=== PATIENT | male | born 1985 | race Caucasian/White ===

== ENCOUNTER 2018-02-10 21:54 | Emergency (ER) | payer BC ==
--- NOTE | 2018-02-10 23:11 | ER ---
Nurse's Notes [facility] Name: Luis Vance Age: 32 yrs Sex: Male : 1985 Arrival Date: 02/10/2018 Time: 21:58 Bed 28 Private MD: Diagnosis: Anxiety disorder, unspecified Presentation: 02/10 21:58 Presenting complaint: Patient states: Increased anxiety for 3 days with decreased aj sleeping and fear of dying. Transition of care: patient was not received from another setting of care. Onset of symptoms was February 07, 2018. Risk Assessment: Do you want to hurt yourself or someone else? Patient reports no desire to harm self or others. Initial Sepsis Screen: Does the patient meet any 2 criteria? No. Patient's initial sepsis screen is negative. Does the patient have a suspected source of infection? No. Patient's initial sepsis screen is negative. Care prior to arrival: None. 21:58 Method Of Arrival: Ambulatory aj 21:58 Acuity: ELVA 4 aj Triage Assessment: 22:00 General: Appears in no apparent distress. comfortable, Behavior is calm, cooperative, aj appropriate for age. Pain: Denies pain. Neuro: Level of Consciousness is awake, alert, obeys commands, Oriented to person, place, time, situation, Appropriate for age. Respiratory: Airway is patent Respiratory effort is even, unlabored, Respiratory pattern is regular, symmetrical. Derm: Skin is intact, is healthy with good turgor, Skin is pink, warm \T\ dry. normal. Historical: - Allergies: 22:00 NKDA; aj - Home Meds: 22:00 Omeprazole Oral [Active]; aj - PMHx: 22:00 chronic neck pain; Anxiety; aj - PSHx: 22:00 None; aj - Immunization history:: Adult Immunizations up to date. - Social history:: Smoking status: Patient/guardian denies using tobacco. - Ebola Screening: : Patient negative for fever greater than or equal to 101.5 degrees Fahrenheit, and additional compatible Ebola Virus Disease symptoms Patient denies exposure to infectious person Patient denies travel to an Ebola-affected area in the 21 days before illness onset No symptoms or risks identified at this time. Screenin:47 Abuse screen: Denies threats or abuse. Nutritional screening: No deficits noted. tl3 Tuberculosis screening: No symptoms or risk factors identified. Fall Risk None identified. Assessment: 22:47 General: Appears well groomed, well developed, well nourished, Behavior is calm, tl3 cooperative. General: Behavior is anxious. Neuro: Level of Consciousness is awake, alert, obeys commands. Cardiovascular: Patient's skin is warm and dry. Respiratory: Airway is patent Respiratory effort is even, unlabored. GI: No signs and/or symptoms were reported involving the gastrointestinal system. : No signs and/or symptoms were reported regarding the genitourinary system. EENT: No signs and/or symptoms were reported regarding the EENT system. Derm: No signs and/or symptoms reported regarding the dermatologic system. Musculoskeletal: No signs and/or symptoms reported regarding the musculoskeletal system. 23:43 Reassessment: ice applied to injection site for comfort. tl3 23:54 Reassessment: No changes from previously documented assessment. Patient and/or family tl3 updated on plan of care and expected duration. Pain level reassessed. Patient is alert, oriented x 3, equal unlabored respirations, skin warm/dry/pink. Vital Signs: 22:00 BP 139 / 86; Pulse 86; Resp 18; Temp 97.4; Pulse Ox 98% on R/A; Weight 94.35 kg; Height aj 5 ft. 11 in. (180.34 cm); 22:47 BP 123 / 74; Pulse 84; Resp 18; Pulse Ox 98% on R/A; tl3 23:54 BP 123 / 99; Pulse 75; Resp 18; Pulse Ox 96% on R/A; tl3 22:00 Body Mass Index 29.01 (94.35 kg, 180.34 cm) ED Course: 21:58 Patient arrived in ED. aj 21:59 Triage completed. aj 22:00 Arm band placed on left wrist. Patient placed in an exam room. aj 22:12 Hayley Huggins, RN is Primary Nurse. tl3 22:13 Bharat Mehta MD is Attending Physician. kdr 22:47 ED physician to see patient. Dr Mehta at bedside for assessment. tl3 22:47 Patient has correct armband on for positive identification. Bed in low position. Pulse tl3 ox on. NIBP on. 22:47 No provider procedures requiring assistance completed. Patient did not have IV access tl3 during this emergency room visit. Administered Medications: 23:33 Drug: SOLU-Medrol 125 mg Route: IM; Site: left gluteus; tl3 23:55 Follow up: Response: Medication administered at discharge. tl3 23:34 CANCELLED (Duplicate Order): Ativan 2 mg PO once tl3 23:34 Drug: Ativan 2 mg Route: IM; Site: left gluteus; tl3 23:55 Follow up: Response: Medication administered at discharge. tl3 Outcome: 23:11 Discharge ordered by . kdr 23:54 Discharged to home ambulatory. tl3 23:54 Condition: good 23:54 Discharge instructions given to patient, family, Instructed on discharge instructions, follow up and referral plans. medication usage, Demonstrated understanding of instructions, follow-up care, medications, Prescriptions given X 2. 23:56 Patient left the ED. tl3 Signatures: Aleksandra Bar RN RN Bharat Garrett MD MD kdr Lowrey, Tammy, RN RN tl3 Corrections: (The following items were deleted from the chart) 23:33 23:33 Ativan 2 mg PO tl3 tl3
--- NOTE | 2018-02-10 23:11 | EDPHYS ---
Physician Documentation [facility] Name: Luis Vance Age: 32 yrs Sex: Male : 1985 Arrival Date: 02/10/2018 Time: 21:58 Bed 28 Private MD: ED Physician Bharat Mehta HPI: 02/11 00:34 This 32 yrs old Male presents to ER via Ambulatory with complaints of Anxiety.kdr 00:34 The patient presents to the emergency department with anxiety, Long standing. Onset: kdr The symptoms/episode began/occurred This is a long standing problem that has been worse in the last few days. He tried to get into a psych today but was not able to get an appointment until next Tuesday. Past psychiatric history: Prior diagnosis: no previous psychiatric diagnosis known, Psychiatric medications include: none, Primary psychiatric physician: the patient does not have a primary psychiatric physician, the patient has not had a prior suicide gesture, the patient does not have a previous inpatient psychiatric history, the patient's last psychiatric treatment was none. Associated signs and symptoms: The patient has no apparent associated signs or symptoms. Severity of symptoms: At their worst the symptoms were severe in the emergency department the symptoms have improved moderately. The patient has experienced similar episodes in the past, chronically, but today's symptoms are worse. The patient has not recently seen a physician. Historical: - Allergies: 02/10 22:00 NKDA; aj - Home Meds: 22:00 Omeprazole Oral [Active]; aj - PMHx: 22:00 chronic neck pain; Anxiety; aj - PSHx: 22:00 None; aj - Immunization history:: Adult Immunizations up to date. - Social history:: Smoking status: Patient/guardian denies using tobacco. - Ebola Screening: : Patient negative for fever greater than or equal to 101.5 degrees Fahrenheit, and additional compatible Ebola Virus Disease symptoms Patient denies exposure to infectious person Patient denies travel to an Ebola-affected area in the 21 days before illness onset No symptoms or risks identified at this time. ROS: 02/11 00:34 Constitutional: Negative for fever, chills, and weight loss, Eyes: Negative for injury, kdr pain, redness, and discharge, ENT: Negative for injury, pain, and discharge, Neck: Negative for injury, pain, and swelling, Cardiovascular: Negative for chest pain, palpitations, and edema, Respiratory: Negative for shortness of breath, cough, wheezing, and pleuritic chest pain, Abdomen/GI: Negative for abdominal pain, nausea, vomiting, diarrhea, and constipation, Back: Negative for injury and pain, : Negative for injury, bleeding, discharge, and swelling, MS/Extremity: Negative for injury and deformity, Skin: Negative for injury, rash, and discoloration, Neuro: Negative for headache, weakness, numbness, tingling, and seizure activity. Allergy/Immunology: Negative for hives, rash, and allergies, Endocrine: Negative for neck swelling, polydipsia, polyuria, polyphagia, and marked weight changes, Hematologic/Lymphatic: Negative for swollen nodes, abnormal bleeding, and unusual bruising. Psych: Positive for anxiety, Negative for depression, drug dependence, alcohol dependence, auditory hallucinations, visual hallucinations, homicidal ideation, insomnia, suicide gesture, suicidal ideation. Exam: 00:34 Constitutional: This is a well developed, well nourished patient who is awake, alert, kdr and in no acute distress. Head/Face: Normocephalic, atraumatic. Eyes: Pupils equal round and reactive to light, extra-ocular motions intact. Lids and lashes normal. Conjunctiva and sclera are non-icteric and not injected. Cornea within normal limits. Periorbital areas with no swelling, redness, or edema. Neck: Trachea midline, no thyromegaly or masses palpated, and no cervical lymphadenopathy. Supple, full range of motion without nuchal rigidity, or vertebral point tenderness. No Meningismus. Chest/axilla: Normal chest wall appearance and motion. Nontender with no deformity. No lesions are appreciated. Cardiovascular: Regular rate and rhythm with a normal S1 and S2. No gallops, murmurs, or rubs. Normal PMI, no JVD. No pulse deficits. Respiratory: Lungs have equal breath sounds bilaterally, clear to auscultation and percussion. No rales, rhonchi or wheezes noted. No increased work of breathing, no retractions or nasal flaring. Abdomen/GI: Soft, non-tender, with normal bowel sounds. No distension or tympany. No guarding or rebound. No evidence of tenderness throughout. Back: No spinal tenderness. No costovertebral tenderness. Full range of motion. Skin: Warm, dry with normal turgor. Normal color with no rashes, no lesions, and no evidence of cellulitis. MS/ Extremity: Pulses equal, no cyanosis. Neurovascular intact. Full, normal range of motion. Neuro: Awake and alert, GCS 15, oriented to person, place, time, and situation. Cranial nerves II-XII grossly intact. Motor strength 5/5 in all extremities. Sensory grossly intact. Cerebellar exam normal. Normal gait. 00:34 Psych: Behavior/mood is cooperative, anxious, Affect is calm, flat, Oriented to person, place, time, Patient has no thoughts/intents to harm self or others. Judgement / Insight is normal. Memory is normal. Delusions/hallucinations are not present. Vital Signs: 02/10 22:00 BP 139 / 86; Pulse 86; Resp 18; Temp 97.4; Pulse Ox 98% on R/A; Weight 94.35 kg; Height aj 5 ft. 11 in. (180.34 cm); 22:47 BP 123 / 74; Pulse 84; Resp 18; Pulse Ox 98% on R/A; tl3 23:54 BP 123 / 99; Pulse 75; Resp 18; Pulse Ox 96% on R/A; tl3 22:00 Body Mass Index 29.01 (94.35 kg, 180.34 cm) aj MDM: 23:11 Patient medically screened. kdr 02/11 00:34 Data reviewed: vital signs, nurses notes. Counseling: I had a detailed discussion with kdr the patient and/or guardian regarding: the historical points, exam findings, and any diagnostic results supporting the discharge/admit diagnosis, the need for outpatient follow up. Administered Medications: 02/10 23:33 Drug: SOLU-Medrol 125 mg Route: IM; Site: left gluteus; tl3 23:55 Follow up: Response: Medication administered at discharge. tl3 23:34 CANCELLED (Duplicate Order): Ativan 2 mg PO once tl3 23:34 Drug: Ativan 2 mg Route: IM; Site: left gluteus; tl3 23:55 Follow up: Response: Medication administered at discharge. tl3 Disposition: 02/10/18 23:11 Discharged to Home. Impression: Anxiety disorder, unspecified. - Condition is Stable. - Discharge Instructions: Panic Attacks, [id number]. - Prescriptions for Ativan 2 mg Oral Tablet - take 1 tablet by ORAL route every 8 hours As needed Take one tablet QHSas needed.; 10 tablet. Medrol (Tyler) 4 mg Oral Tablets, Dose Pack - take 1 tablet by ORAL route as directed - follow package instructions; 1 packet. - Medication Reconciliation Form, Thank You Letter form. - Follow up: Private Physician; When: 1 week; Reason: If symptoms return, Further diagnostic work-up, Recheck today's complaints, Continuance of care, Re-evaluation by your physician. - Problem is an acute exacerbation. - Symptoms have improved. Signatures: Aleksandra Bar RN RN aj Bharat Mehta MD MD kdr Hayley Huggins RN RN tl3 Corrections: (The following items were deleted from the chart) 23:34 23:09 Ativan 2 mg PO once ordered. kdr tl3 23:34 23:33 Ativan 2 mg PO once given. tl3 tl3 23:34 23:33 Ativan 2 mg PO once ordered. tl3 tl3 23:56 23:11 02/10/2018 23:11 Discharged to Home. Impression: Anxiety disorder, unspecified. tl3 Condition is Stable. Forms are Medication Reconciliation Form, Thank You Letter, Antibiotic Education, Prescription Opioid Use. Follow up: Private Physician; When: 1 week; Reason: If symptoms return, Further diagnostic work-up, Recheck today's complaints, Continuance of care, Re-evaluation by your physician. Problem is an acute exacerbation. Symptoms have improved. kdr
[2018-02-10] MEDS ORDERED: METHYLPREDNISOLONE 125 MG INJ ONE (23:28)
[2018-02-10] MEDS ORDERED: LORazepam 2 MG/ML VIAL ONE (23:29)
== END 2018-02-10 23:56 | disposition home or self-care (01) ==
LOC: ER 21:54
DX: F41.9 Anxiety disorder, unspecified (principal)
CPT/HCPCS: 96372; 99283; J2930

== ENCOUNTER 2018-08-31 11:36 | Emergency (ER) | payer BC ==
[2018-08-31] MEDS ORDERED: NA CHLORIDE 0.9% 1,000 ML ONE (13:19)
[2018-08-31] MEDS ORDERED: KETOROLAC 30 MG/ML INJ ONE (13:19)
[2018-08-31] MEDS ORDERED: METOCLOPRAMIDE 10 MG/2mL INJ ONE (13:19)
[2018-08-31] MEDS ORDERED: DIPHENHYDRAMINE 50 MG/ML VIAL ONE (13:19)
--- NOTE | 2018-08-31 13:24 | ER ---
Nurse's Notes [facility] Name: Luis Vance Age: 32 yrs Sex: Male : 1985 Arrival Date: 08/31/2018 Time: 11:39 Bed 15 Private MD: Diagnosis: Presentation: 08/31 12:01 Presenting complaint: Patient states: migraine X 2 days, body aches, fever, loss of iw appetite today. Transition of care: patient was not received from another setting of care. Onset of symptoms was August 29, 2018. Risk Assessment: Do you want to hurt yourself or someone else? Patient reports no desire to harm self or others. Initial Sepsis Screen: Does the patient meet any 2 criteria? No. Patient's initial sepsis screen is negative. Does the patient have a suspected source of infection? No. Patient's initial sepsis screen is negative. Care prior to arrival: None. 12:01 Method Of Arrival: Ambulatory iw 12:01 Acuity: ELVA 4 iw Historical: - Allergies: 12:02 NKDA; iw - PMHx: 12:02 Anxiety; chronic neck pain; iw - PSHx: 12:02 None; iw - Immunization history:: Adult Immunizations not up to date. - Social history:: Smoking status: Patient/guardian denies using tobacco. - Ebola Screening: : Patient negative for fever greater than or equal to 101.5 degrees Fahrenheit, and additional compatible Ebola Virus Disease symptoms Patient denies exposure to infectious person Patient denies travel to an Ebola-affected area in the 21 days before illness onset No symptoms or risks identified at this time. Assessment: 12:10 Reassessment: Patient is alert, oriented x 3, equal unlabored respirations, skin sg warm/dry/pink. at bedside evaluating pt at this time. 12:40 Reassessment: pt not observed to be in exam room at this time. sg Vital Signs: 12:02 BP 131 / 84; Pulse 100; Resp 16; Temp 99.5(O); Pulse Ox 100% ; Weight 95.25 kg; Height iw 5 ft. 11 in. (180.34 cm); Pain 9/10; 12:02 Body Mass Index 29.29 (95.25 kg, 180.34 cm) iw ED Course: 11:39 Patient arrived in ED. mr 12:00 Arun Souza MD is Attending Physician. gs 12:02 Triage completed. iw 12:02 Arm band placed on. iw 13:04 Luis Charles, RN is Primary Nurse. sg 13:12 not in exam room at this time. sg Administered Medications: No medications were administered Outcome: 13:22 Eloped from patient exam room, after seeing physician Time discovered patient gone: August at 13:20 13:22 unknown 13:23 Patient left the ED. sg Signatures: Luis Charles, GENEVIEVE VALLEJO Sulma Jaramillo Irene, RN RN Arun Souza MD MD
--- NOTE | 2018-08-31 13:24 | EDPHYS ---
Physician Documentation [facility] Name: Luis Vance Age: 32 yrs Sex: Male : 1985 Arrival Date: 08/31/2018 Time: 11:39 Bed 15 Private MD: ED Physician Arun Souza HPI: 08/31 13:17 This 32 yrs old Male presents to ER via Ambulatory with complaints of gs Headache. 13:17 The patient complains of pain to the left side of forehead. The patient describes the gs headache as pounding. Onset: The symptoms/episode began/occurred gradually, 3 day(s) ago. 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 Severity of symptoms: At its worst the pain was moderate, in the emergency department the pain is unchanged. The symptoms are alleviated by nothing. the symptoms are aggravated by nothing. The patient has experienced similar episodes in the past, a few times. Historical: - Allergies: 12:02 NKDA; iw - PMHx: 12:02 Anxiety; chronic neck pain; iw - PSHx: 12:02 None; iw - Immunization history:: Adult Immunizations not up to date. - Social history:: Smoking status: Patient/guardian denies using tobacco. - Ebola Screening: : Patient negative for fever greater than or equal to 101.5 degrees Fahrenheit, and additional compatible Ebola Virus Disease symptoms Patient denies exposure to infectious person Patient denies travel to an Ebola-affected area in the 21 days before illness onset No symptoms or risks identified at this time. ROS: 13:17 All other systems are negative. gs Exam: 13:17 Head/Face: Normocephalic, atraumatic. Eyes: Pupils equal round and reactive to light, gs extra-ocular motions intact. Lids and lashes normal. Conjunctiva and sclera are non-icteric and not injected. Cornea within normal limits. Periorbital areas with no swelling, redness, or edema. ENT: Nares patent. No nasal discharge, no septal abnormalities noted. Tympanic membranes are normal and external auditory canals are clear. Oropharynx with no redness, swelling, or masses, exudates, or evidence of obstruction, uvula midline. Mucous membranes moist. Neck: Trachea midline, no thyromegaly or masses palpated, and no cervical lymphadenopathy. Supple, full range of motion without nuchal rigidity, or vertebral point tenderness. No Meningismus. Chest/axilla: Normal chest wall appearance and motion. Nontender with no deformity. No lesions are appreciated. Cardiovascular: Regular rate and rhythm with a normal S1 and S2. No gallops, murmurs, or rubs. Normal PMI, no JVD. No pulse deficits. Respiratory: Lungs have equal breath sounds bilaterally, clear to auscultation and percussion. No rales, rhonchi or wheezes noted. No increased work of breathing, no retractions or nasal flaring. Abdomen/GI: Soft, non-tender, with normal bowel sounds. No distension or tympany. No guarding or rebound. No evidence of tenderness throughout. Back: No spinal tenderness. No costovertebral tenderness. Full range of motion. Skin: Warm, dry with normal turgor. Normal color with no rashes, no lesions, and no evidence of cellulitis. MS/ Extremity: Pulses equal, no cyanosis. Neurovascular intact. Full, normal range of motion. Neuro: Awake and alert, GCS 15, oriented to person, place, time, and situation. Cranial nerves II-XII grossly intact. Motor strength 5/5 in all extremities. Sensory grossly intact. Cerebellar exam normal. Normal gait. 13:17 Constitutional: The patient appears alert, awake. Vital Signs: 12:02 BP 131 / 84; Pulse 100; Resp 16; Temp 99.5(O); Pulse Ox 100% ; Weight 95.25 kg; Height iw 5 ft. 11 in. (180.34 cm); Pain 9/10; 12:02 Body Mass Index 29.29 (95.25 kg, 180.34 cm) MDM: 12:19 Patient medically screened. 13:17 Differential diagnosis: migraine,flu,dehydration. Data reviewed: vital signs, nurses gs notes. Administered Medications: No medications were administered Disposition: 08/31/18 13:23 Patient left the facility after being seen by provider. - Patient left due to unknown. - Condition is Stable. Signatures: Dispatcher [employer] EDLuis Can RN RN Sofia David RN RN Arun Souza MD MD
== END 2018-08-31 13:23 | disposition left against medical advice (07) ==
LOC: ER 11:36
DX: R51 Headache (principal)
CPT/HCPCS: 99281; J2765; J7030